=== PATIENT | female | born 1970 | race Caucasian/White ===

== ENCOUNTER → 2020-02-04 | Outpatient (CLI) | payer OTHER ==
[2020-02-09 15:10] LABS: HPV 16 Negative (Negative); HPV 18 Negative (Negative); HPV OTHER HR TYPES Negative (Negative)
== END | disposition home or self-care (01) ==
LOC: LAB SHORT 16:22 → LAB 16:22
PROVIDERS: Family Medicine
DX: Z01.419 Encounter for gynecological examination (general) (routine) without abnormal findings (principal)
CPT/HCPCS: 87624; G0145

== ENCOUNTER → 2021-08-08 | Outpatient (CLI) | payer OTHER ==
[~2021-08-08] MED LIST: BUSP5; CELE100; CENTRUM SILVER1 EAC2; ELDERTONIC LIQ473 ML; IRON18 MG; Lisinopril2.5 MG; METO25ER; OMEP20ER; TIMOLOL BRIMONI
== END | disposition home or self-care (01) ==
LOC: PLD 13:44 → LAB SHORT 13:44
DX: N95.0 Postmenopausal bleeding (principal)
CPT/HCPCS: 88305

== ENCOUNTER 2021-11-13 10:27 | Day surgery (SDC) | payer OTHER ==
[~2021-11-13] VITALS: Ht 157.5 cm; Wt 94.6 kg
[2021-11-13] MEDS ORDERED: FLUT1DIS2 INH (10:50)
[2021-11-13] MEDS ORDERED: ALBUTEROL1.25 MG/3 (10:51)
[2021-11-13] MEDS ORDERED: ALBU90OI INH (10:52)
[2021-11-13] MEDS ORDERED: ZYRTEC10 M2 PO (10:52)
[2021-11-13] MEDS ORDERED: HYDHCL25 PO (10:53)
[2021-11-13] MEDS ORDERED: LATA.005SO BOTHEYES (10:54)
[2021-11-13] MEDS ORDERED: ENBREL50 MG/1 M2 (10:55)
[2021-11-13] MEDS ORDERED: Alphagan P5 ML (10:55)
[2021-11-13] MEDS ORDERED: Nortriptyline H50 MG PO (10:56)
[2021-11-13] MEDS ORDERED: TRAZ100 PO (10:57)
[2021-11-13] MEDS ORDERED: TIMO.5OPSO BOTHEYES (10:57)
--- NOTE | 2021-11-13 13:20 | NUR ---
Patient up to Ambulate independently. Gait steady. Lungs clear T/O to Auscultation. Pre-Op teaching done. Pt verbalizes understanding. Discharged via wheelchair to private car for ride home WITH MOM [employer]. PT REPORTED TOLERABLE PAIN LEVEL AT 7/10 AND NO NAUSEA. PT REFUSING WATER OR FOOD AND IS REQUESTING TO GO HOME. IV REMOVED AND PT DISCHARGED HOME.
--- NOTE | 2021-11-13 13:42 | NUR ---
11/13/21 1342 Jomar العراقي NO INTRAOP ABO ORDERED
== END 2021-11-13 13:15 | disposition home or self-care (01) ==
LOC: ORSCMMR 10:27 → ORD 11:30 → ORSCMMR 13:15
PROVIDERS: Obstetrics & Gynecology
PROC: 0UDB8ZX Extraction of Endometrium, Via Natural or Artificial Opening Endoscopic, Diagnostic (ICD-10-PCS; principal; 2021-11-13 11:30)
PROC: 0UB98ZX Excision of Uterus, Via Natural or Artificial Opening Endoscopic, Diagnostic (ICD-10-PCS; principal; 2021-11-13 11:30)
DX: N95.0 Postmenopausal bleeding (principal); N84.0 Polyp of corpus uteri; I10 Essential (primary) hypertension; J45.909 Unspecified asthma, uncomplicated; E78.5 Hyperlipidemia, unspecified; J44.9 Chronic obstructive pulmonary disease, unspecified; K76.0 Fatty (change of) liver, not elsewhere classified; E66.9 Obesity, unspecified; Z68.38 Body mass index [BMI] 38.0-38.9, adult; Z79.899 Other long term (current) drug therapy
CPT/HCPCS: 88305; J1100; J1885; J2250; J2370; J2405; J2704; J2765; J3010; J7120

== ENCOUNTER → 2022-04-30 | Outpatient (CLI) | payer OTHER ==
[~2022-04-30] MED LIST changes: +ALBU90OI INH; +ALBUTEROL1.25 MG/3; +Alphagan P5 ML; +ENBREL50 MG/1 M2; +FLUT1DIS2 INH; +HYDHCL25 PO; +LATA.005SO BOTHEYES; +Nortriptyline H50 MG PO; +TIMO.5OPSO BOTHEYES; +TRAZ100 PO; +ZYRTEC10 M2 PO
[2022-05-01 15:11] LABS: HPV 16 Negative (Negative); HPV 18 Negative (Negative); HPV OTHER HR TYPES Negative (Negative)
== END ==
LOC: LAB 10:18 → LAB SHORT 10:18
PROVIDERS: Obstetrics & Gynecology
DX: Z01.419 Encounter for gynecological examination (general) (routine) without abnormal findings (principal)
CPT/HCPCS: 87624; G0145

== ENCOUNTER 2022-06-18 06:07 | Day surgery (SDC) | payer OTHER ==
[2022-06-18] VITALS (12 sets, daily range): BP systolic 104–157; BP diastolic 76–99
[~2022-06-18] VITALS: Ht 157.5 cm; Wt 98.6 kg
--- NOTE | 2022-06-18 07:36 | NUR ---
PT GLASSES TO PACU
[2022-06-18] MEDS ORDERED: ACET500 PO (14:59)
[2022-06-18] MEDS ORDERED: OXYC5 PO (15:00)
--- NOTE | 2022-06-18 19:24 | NUR ---
END OF SHIFT SUMMARY: PATIENT EXPERIENCED HIGH LEVELS OF PAIN AND NOTABLE NAUSEA DURING THE SHIFT. TO THE DEGREE THAT PATIENT REQUESTED THAT SHE BE ABLE TO STAY THE NIGHT. (DISCHARGE DELAYED PER DR. TRAN). DURING THE SHIFT, MEDICATED FOR PAIN, NAUSEA AND GAS. PATIENT UP FREQUENTLY TO THE BATHROOM. PROVIDED PATIENT WITH A K-PAD AND RECLINER. BY THE END OF THE SHIFT, PATIENT REPORTED THAT SHE WAS FEELING MUCH BETTER. PATIENT LAUGHING AND JOKING WITH STAFF. PATIENT ABLE TO TOLERATE A TURKEY SANDWICH WITHOUT NAUSEA.
[2022-06-19 00:03] VITALS: BP 159/87
[2022-06-19 03:02] VITALS: BP 116/73
--- NOTE | 2022-06-19 03:18 | NUR ---
SHIFT SUMMARY: POD 1 LAP TOTAL HYSTER PATIENT IS A&OX4. VS ARE WNL AND IS ON RA. PATIENTS PAIN IS MANAGED WITH IV FENT AND PO OXY. HER LAP SITES X4 ON ABD HAVE WOUND GLUE THAT ARE C/D/I. DENIES NAUSEA OR VOMITING. SHE IS TOLERATING PO INTAKE AND IS VOIDING. SHE IS INDEP. IN THE ROOM. PATIENT IS LAYING IN BED WITH CALL LIGHT IN REACH.
[2022-06-19 08:24] VITALS: BP 129/82
== END 2022-06-19 09:46 | disposition home or self-care (01) ==
LOC: ORSCMMR 06:07 → ORD 07:30 → ORSCMMR 07:30 → SURS 10:36 → ORSCMMR 06-19 09:46
PROVIDERS: Obstetrics & Gynecology
PROC: 0UT9FZZ Resection of Uterus, Via Natural or Artificial Opening With Percutaneous Endoscopic Assistance (ICD-10-PCS; principal; 2022-06-18 07:30)
PROC: 8E0W4CZ Robotic Assisted Procedure of Trunk Region, Percutaneous Endoscopic Approach (ICD-10-PCS; principal; 2022-06-18 07:30)
PROC: 0UT7FZZ Resection of Bilateral Fallopian Tubes, Via Natural or Artificial Opening With Percutaneous Endoscopic Assistance (ICD-10-PCS; principal; 2022-06-18 07:30)
DX: N95.0 Postmenopausal bleeding (principal); D25.9 Leiomyoma of uterus, unspecified; N80.03 Adenomyosis of the uterus; R10.2 Pelvic and perineal pain; I10 Essential (primary) hypertension; J44.9 Chronic obstructive pulmonary disease, unspecified; F17.210 Nicotine dependence, cigarettes, uncomplicated; I25.2 Old myocardial infarction; E66.9 Obesity, unspecified; Z68.39 Body mass index [BMI] 39.0-39.9, adult; Z79.899 Other long term (current) drug therapy
CPT/HCPCS: 58571; S2900; 88307; 94760; A9270; J0690; J1580; J1644; J2250; J2370; J2405; J2704; J2765; J2795; J3010; J7120